=== PATIENT | male | born 1965 | race Caucasian/White ===

== ENCOUNTER → 2018-10-20 | Outpatient (CLI) | payer BC ==
[~2018-10-20] MED LIST: BIAXIN FILMTAB250 MG PO; CHOLESTEROL MED; CRESTOR5 MG PO; ENALAPRIL MALEAT5 MG PO; FENOFIBRATE40 MG PO; GLIPIZIDE ER2.5 MG PO; GLUCOPHAGE1000 MG PO; IBU800 M1 PO; LIPITOR10 MG PO; LISINOPRIL2.5 MG PO; METFORMIN500 MG PO; ULTRAM50 MG PO
[2018-10-20 09:00] LABS: HEMATOCRIT 44.5 % (42.0-52.0); HEMOGLOBIN 14.5 g/dl (14.0-18.0); MEAN CELL VOLUME 87.1 fl (80.0-94.0); MEAN CORPUSCULAR HGB 28.4 pg (27.0-31.0); MEAN CORPUSCULAR HGB CONC 32.6 g/dl (33.0-37.0); MEAN PLATELET VOLUME 10.5 fl (9.6-12.3); RED BLOOD COUNT 5.11 10*6/uL (4.50-5.90); RED CELL DISTRI WIDTH 14.1 % (0-14.5); WHITE BLOOD COUNT 9.6 10*3/uL (4.8-10.8)
[2018-10-20 09:32] LABS: CHLORIDE 107 mmol/L (98-107); POTASSIUM 4.2 mmol/L (3.5-5.1); SODIUM 139 mmol/L (136-145)
[2018-10-20 09:41] LABS: ALBUMIN 3.7 gm/dl (3.1-4.5); ALKALINE PHOSPHATASE 42 U/L (45-117); BUN 11 mg/dl (7-24); CHOLESTEROL 121 mg/dL (<200); CREATININE 1.14 mg/dL (0.70-1.30); HDL CHOLESTEROL 16 mg/dl (40-60); LDL CHOLESTEROL 42 mg/dL (9-159); SGOT/AST 18 IU/L (3-35); SGPT/ALT 33 U/L (12-78); TOTAL PROTEIN 6.7 gm/dL (6.4-8.2); TRIGLYCERIDES 317 mg/dl (<150); VLDL CHOLESTEROL 63 mg/dL (6-40)
[2018-10-20 10:17] LABS: VITAMIN D, 25-HYDROXY 38.8 ng/mL (30-100)
[2018-10-20 10:18] LABS: PTH INTACT 28.7 pg/mL (18.5-88.0)
[2018-10-23 17:03] LABS: RENIN ACTIVITY (PLASMA) 0.837 ng/mL/hr (0.167-5.380)
[2018-10-25 05:03] LABS: ALDOSTERONE/RENIN RATIO 3.7 (0.0-30.0)
[2018-10-26 08:05] LABS: METANEPHRINE, PLASMA 15 pg/mL (0-62); NORMETANEPHRINE, PLASMA 71 pg/mL (0-145)
== END | disposition home or self-care (01) ==
LOC: LAB 08:28
PROVIDERS: Internal Medicine; Registered Nurse Flight
DX: N20.0 Calculus of kidney (principal); E27.8 Other specified disorders of adrenal gland; E55.9 Vitamin D deficiency, unspecified; E11.65 Type 2 diabetes mellitus with hyperglycemia; E78.2 Mixed hyperlipidemia

== ENCOUNTER → 2019-09-07 | Outpatient (CLI) | payer OTHER ==
[2019-09-07 10:14] LABS: BILIRUBIN NEGATIVE (NEGATIVE); BLOOD NEGATIVE (NEGATIVE); CLARITY CLEAR (CLEAR); COLOR YELLOW (YELLOW); GLUCOSE 3+ (NEGATIVE); KETONE NEGATIVE (NEGATIVE); LEUKO ESTERASE NEGATIVE (NEGATIVE); NITRITE NEGATIVE (NEGATIVE); UROBILINOGEN 0.2 E.U./dl (0.2-1.0)
[2019-09-07 10:34] LABS: ALBUMIN 3.7 gm/dl (3.1-4.5); BILIRUBIN, DIRECT 0.2 mg/dL (0.0-0.2); BUN 17 mg/dl (7-24); CHLORIDE 108 mmol/L (98-107); CHOLESTEROL 90 mg/dL (<200); CREATININE 1.14 mg/dL (0.70-1.30); HDL CHOLESTEROL 14 mg/dl (40-60); LDL CHOLESTEROL 14 mg/dL (9-159); POTASSIUM 4.2 mmol/L (3.5-5.1); SGOT/AST 27 IU/L (3-35); SGPT/ALT 36 U/L (12-78); SODIUM 137 mmol/L (136-145); TOTAL PROTEIN 6.8 gm/dL (6.4-8.2); TRIGLYCERIDES 309 mg/dl (<150); URIC ACID 4.6 mg/dL (3.5-7.2); VLDL CHOLESTEROL 62 mg/dL (6-40)
[2019-09-07 10:36] LABS: ALKALINE PHOSPHATASE 42 U/L (45-117)
== END | disposition home or self-care (01) ==
LOC: LAB 09:40
PROVIDERS: Internal Medicine
DX: E11.65 Type 2 diabetes mellitus with hyperglycemia (principal); E78.5 Hyperlipidemia, unspecified; E55.9 Vitamin D deficiency, unspecified; N20.0 Calculus of kidney

== ENCOUNTER → 2020-01-10 | Outpatient (CLI) | payer OTHER ==
[2020-01-10 09:58] LABS: BILIRUBIN Negative (Negative); BLOOD Negative (Negative); CLARITY Clear (Clear); COLOR Yellow (Yellow); GLUCOSE 3+ (Negative); KETONE Negative (Negative); LEUKO ESTERASE Negative (Negative); NITRITE Negative (Negative); SPECIFIC GRAVITY 1.025 (1.001-1.030)
[2020-01-10 10:10] LABS: CALCIUM OXALATE CRYSTALS Trace; RBC 0-2 rbc/hpf (0-2)
[2020-01-10 10:13] LABS: ALBUMIN 3.8 gm/dl (3.1-4.5); ALKALINE PHOSPHATASE 48 U/L (45-117); BILIRUBIN, DIRECT 0.2 mg/dL (0.0-0.2); BUN 18 mg/dl (7-24); CHLORIDE 109 mmol/L (98-107); CHOLESTEROL 92 mg/dL (<200); CREATININE 1.06 mg/dL (0.70-1.30); HDL CHOLESTEROL 21 mg/dl (40-60); LDL CHOLESTEROL 7 mg/dL (9-159); POTASSIUM 4.4 mmol/L (3.5-5.1); SGOT/AST 32 IU/L (3-35); SGPT/ALT 39 U/L (12-78); SODIUM 139 mmol/L (136-145); TOTAL PROTEIN 6.9 gm/dL (6.4-8.2); TRIGLYCERIDES 320 mg/dl (<150); VLDL CHOLESTEROL 64 mg/dL (6-40)
== END | disposition home or self-care (01) ==
LOC: LAB 08:53
PROVIDERS: ATTEND Internal Medicine
DX: E11.65 Type 2 diabetes mellitus with hyperglycemia (principal); E78.5 Hyperlipidemia, unspecified; E55.9 Vitamin D deficiency, unspecified

== ENCOUNTER → 2020-02-10 | Outpatient (CLI) | payer OTHER | END | disposition home or self-care (01) | LOC: COVID19 12:42 | PROVIDERS: ATTEND Internal Medicine | DX: U07.1 COVID-19 (principal) ==

== ENCOUNTER → 2020-07-25 | Outpatient (CLI) | payer OTHER ==
[2020-07-25 10:10] LABS: ALBUMIN 3.7 gm/dl (3.1-4.5); ALKALINE PHOSPHATASE 39 U/L (45-117); BILIRUBIN, DIRECT 0.2 mg/dL (0.0-0.2); BUN 16 mg/dl (7-24); CHLORIDE 108 mmol/L (98-107); CHOLESTEROL 87 mg/dL (<200); CREATININE 1.07 mg/dL (0.70-1.30); LDL CHOLESTEROL 21 mg/dL (9-159); POTASSIUM 4.2 mmol/L (3.5-5.1); SGOT/AST 25 IU/L (3-35); SGPT/ALT 32 U/L (12-78); SODIUM 140 mmol/L (136-145); TOTAL PROTEIN 6.8 gm/dL (6.4-8.2); TRIGLYCERIDES 246 mg/dl (<150)
[2020-07-25 10:15] LABS: BILIRUBIN Negative (Negative); BLOOD Negative (Negative); CLARITY Clear (Clear); COLOR Yellow (Yellow); GLUCOSE 3+ (Negative); KETONE Negative (Negative); LEUKO ESTERASE Negative (Negative); NITRITE Negative (Negative); PH 5.5 (4.5-8.0)
[2020-07-25 10:21] LABS: WBC 0-2 wbc/hpf (0-5)
== END | disposition home or self-care (01) ==
LOC: LAB 09:18
PROVIDERS: ATTEND Internal Medicine
DX: E11.65 Type 2 diabetes mellitus with hyperglycemia (principal); E78.5 Hyperlipidemia, unspecified; E55.9 Vitamin D deficiency, unspecified

== ENCOUNTER → 2020-11-23 | Outpatient (CLI) | payer OTHER ==
[2020-11-23 10:29] LABS: BILIRUBIN Negative (Negative); BLOOD Negative (Negative); CLARITY Cloudy (Clear); COLOR Yellow (Yellow); GLUCOSE 3+ (Negative); KETONE Negative (Negative); LEUKO ESTERASE Negative (Negative); NITRITE Negative (Negative); PH 5.5 (4.5-8.0)
[2020-11-23 10:39] LABS: BACTERIA TRACE; CALCIUM OXALATE CRYSTALS 1+; RBC 0-2 rbc/hpf (0-2)
[2020-11-23 11:11] LABS: ALBUMIN 3.6 gm/dl (3.1-4.5); ALKALINE PHOSPHATASE 36 U/L (45-117); BUN 17 mg/dl (7-24); CHLORIDE 108 mmol/L (98-107); CHOLESTEROL 160 mg/dL (<200); CREATININE 1.03 mg/dL (0.70-1.30); LDL CHOLESTEROL 87 mg/dL (9-159); POTASSIUM 4.7 mmol/L (3.5-5.1); SGOT/AST 31 IU/L (3-35); SGPT/ALT 30 U/L (12-78); SODIUM 139 mmol/L (136-145); TOTAL PROTEIN 6.6 gm/dL (6.4-8.2); TRIGLYCERIDES 271 mg/dl (<150)
== END | disposition home or self-care (01) ==
LOC: LAB 09:38
PROVIDERS: ATTEND Internal Medicine
DX: E11.9 Type 2 diabetes mellitus without complications (principal); E78.5 Hyperlipidemia, unspecified; E27.8 Other specified disorders of adrenal gland; E55.9 Vitamin D deficiency, unspecified

== ENCOUNTER → 2021-05-17 | Outpatient (CLI) | payer BC ==
[2021-05-17 09:48] LABS: BILIRUBIN Negative (Negative); BLOOD Negative (Negative); CLARITY Clear (Clear); COLOR Yellow (Yellow); GLUCOSE 3+ (Negative); KETONE Negative (Negative); LEUKO ESTERASE Negative (Negative); NITRITE Negative (Negative); SPECIFIC GRAVITY 1.025 (1.001-1.030)
[2021-05-17 09:58] LABS: EPITHELIAL CELLS 0-2
[2021-05-17 09:59] LABS: BACTERIA TRACE; CALCIUM OXALATE CRYSTALS 1+; MUCOUS 1+
[2021-05-17 10:04] LABS: ALKALINE PHOSPHATASE 39 U/L (45-117); BUN 13 mg/dl (7-24); CHLORIDE 110 mmol/L (98-107); CHOLESTEROL 64 mg/dL (<200); CREATININE 0.89 mg/dL (0.70-1.30); LDL CHOLESTEROL 2 mg/dL (9-159); POTASSIUM 4.3 mmol/L (3.5-5.1); SGOT/AST 35 IU/L (3-35); SGPT/ALT 49 U/L (12-78); SODIUM 141 mmol/L (136-145); TOTAL PROTEIN 6.5 gm/dL (6.4-8.2); TRIGLYCERIDES 191 mg/dl (<150)
== END | disposition home or self-care (01) ==
LOC: LAB 09:04
PROVIDERS: ATTEND Internal Medicine
DX: E11.9 Type 2 diabetes mellitus without complications (principal); E55.9 Vitamin D deficiency, unspecified; E78.5 Hyperlipidemia, unspecified

== ENCOUNTER → 2021-10-18 | Outpatient (CLI) | payer BC ==
[2021-10-18 10:10] LABS: BILIRUBIN Negative (Negative); BLOOD Negative (Negative); CLARITY Clear (Clear); COLOR Yellow (Yellow); GLUCOSE 3+ (Negative); KETONE Negative (Negative); LEUKO ESTERASE Negative (Negative); NITRITE Negative (Negative); SPECIFIC GRAVITY 1.015 (1.001-1.030)
[2021-10-18 10:26] LABS: ALKALINE PHOSPHATASE 37 U/L (45-117); BUN 18 mg/dl (7-24); CHLORIDE 108 mmol/L (98-107); CHOLESTEROL 85 mg/dL (<200); CREATININE 1.17 mg/dL (0.70-1.30); LDL CHOLESTEROL 15 mg/dL (9-159); POTASSIUM 4.8 mmol/L (3.5-5.1); SGOT/AST 33 IU/L (3-35); SGPT/ALT 36 U/L (12-78); SODIUM 139 mmol/L (136-145); TRIGLYCERIDES 253 mg/dl (<150)
[2021-10-18 11:16] LABS: BACTERIA TRACE; RBC 0-2 rbc/hpf (0-2)
== END ==
LOC: LAB 09:47
PROVIDERS: ATTEND Internal Medicine
DX: E11.9 Type 2 diabetes mellitus without complications (principal); E78.5 Hyperlipidemia, unspecified; E55.9 Vitamin D deficiency, unspecified

== ENCOUNTER → 2021-12-20 | Outpatient (CLI) | payer BC | LOC: LAB 10:19 | PROVIDERS: ATTEND Urology | DX: Z12.5 Encounter for screening for malignant neoplasm of prostate (principal) ==

== ENCOUNTER → 2022-04-11 | Outpatient (CLI) | payer BC ==
[2022-04-11 11:11] LABS: BILIRUBIN Negative (Negative); BLOOD Negative (Negative); CLARITY Clear (Clear); COLOR Yellow (Yellow); GLUCOSE 3+ (Negative); KETONE Negative (Negative); LEUKO ESTERASE Negative (Negative); NITRITE Negative (Negative)
[2022-04-11 11:22] LABS: CALCIUM OXALATE CRYSTALS Trace; RBC 0-2 rbc/hpf (0-2)
[2022-04-11 11:23] LABS: BACTERIA 1+
[2022-04-11 11:26] LABS: ALKALINE PHOSPHATASE 35 U/L (46-116); BUN 12 mg/dl (9-23); CHLORIDE 105 mmol/L (98-107); CHOLESTEROL 75 mg/dL (<200); LDL CHOLESTEROL 25 mg/dL (9-159); POTASSIUM 4.4 mmol/L (3.4-5.1); SGPT/ALT 31 U/L (10-49); TOTAL PROTEIN 6.6 gm/dL (6.0-8.0); TRIGLYCERIDES 151 mg/dl (<150)
== END | disposition home or self-care (01) ==
LOC: LAB 10:37
PROVIDERS: ATTEND Internal Medicine
DX: E11.9 Type 2 diabetes mellitus without complications (principal); E78.5 Hyperlipidemia, unspecified; E55.9 Vitamin D deficiency, unspecified

== ENCOUNTER 2022-05-30 22:46 | Inpatient (IN) | payer BC ==
[~2022-05-30] VITALS: Ht 172.7 cm; Wt 87.3 kg
[2022-05-30 23:09] VITALS: BP 122/66
[2022-05-30 23:53] LABS: BASO # 0.1 10*3/uL (0.0-0.1); BASO % 0.5 % (0.0-1.0); EOS # 0.3 10*3/uL (0.0-0.4); EOS % 2.3 % (1.0-4.0); HEMATOCRIT 44.2 % (42.0-52.0); LYMPH # 2.6 10*3/uL (1.3-4.4); LYMPH % 20.6 % (27.0-41.0); MEAN CELL VOLUME 87.4 fl (80.0-94.0); MEAN CORPUSCULAR HGB 29.1 pg (27.0-31.0); MEAN CORPUSCULAR HGB CONC 33.3 g/dl (33.0-37.0); MEAN PLATELET VOLUME 9.9 fl (9.6-12.3); MONO # 1.1 10*3/uL (0.1-1.0); MONO % 8.7 % (3.0-9.0); NEUT # 8.4 10*3/uL (2.3-7.9); NEUT % 67.7 % (47.0-73.0); PLATELET COUNT AUTOMATED 249 10*3/uL (130-400); RED BLOOD COUNT 5.06 10*6/uL (4.50-5.90); RED CELL DISTRI WIDTH 14.3 % (0-14.5); WHITE BLOOD COUNT 12.4 10*3/uL (4.8-10.8)
[2022-05-31] VITALS (13 sets, daily range): BP systolic 120–147; BP diastolic 52–82
[2022-05-31 00:09] LABS: ALKALINE PHOSPHATASE 27 U/L (46-116); BUN 14 mg/dl (9-23); CHLORIDE 111 mmol/L (98-107); LIPASE 70 U/L (12-53); POTASSIUM 4.1 mmol/L (3.4-5.1); SGPT/ALT 22 U/L (10-49); TOTAL PROTEIN 5.4 gm/dL (6.0-8.0)
[2022-05-31 00:42] LABS: BILIRUBIN 1+ (Negative); BLOOD 2+ (Negative); CLARITY Turbid (Clear); COLOR Orange (Yellow); GLUCOSE 3+ (Negative); KETONE Negative (Negative); LEUKO ESTERASE 2+ (Negative); NITRITE Positive (Negative); SPECIFIC GRAVITY >= 1.030 (1.001-1.030)
[2022-05-31 01:05] LABS: CALCIUM OXALATE CRYSTALS Trace; RBC TNTC rbc/hpf (0-2)
[2022-05-31 01:06] LABS: BACTERIA TRACE; WBC 16-20 wbc/hpf (0-5)
[2022-05-31] MEDS ORDERED: ZETIA10 MG PO (03:37)
[2022-05-31] MEDS ORDERED: VASCEPA1 G1 PO (03:37)
[2022-05-31] MEDS ORDERED: JARDIANCE25 MG PO (03:37)
[2022-05-31] MEDS ORDERED: IMDUR SA30 MG PO (03:38)
[2022-05-31] MEDS ORDERED: Clopidogrel75 MG PO (03:38)
[2022-05-31] MEDS ORDERED: ENALAPRIL5 MG PO (03:39)
[2022-05-31] MEDS ORDERED: GLIPIZIDE5 MG PO (03:39)
[2022-05-31] MEDS ORDERED: METFORMIN HYDR500 MG PO (03:39)
[2022-05-31] MEDS ORDERED: ROSUVASTATIN CA40 MG PO (03:42)
[2022-05-31] MEDS ORDERED: COREG12.5 M1 PO (03:43)
[2022-05-31] MEDS ORDERED: RANOLAZINE ER500 MG PO (03:44)
[2022-05-31] MEDS ORDERED: MONTELUKAST SOD10 MG PO (03:44)
[2022-05-31] MEDS ORDERED: FLONASE ALLERG9.9 ML NAS (03:45)
[2022-05-31] MEDS ORDERED: TRULICITY4.5 MG/0.5 SQ (03:46)
[2022-06-01] VITALS: BP 130/61
[2022-06-01 04:00] VITALS: BP 155/79
[2022-06-01 05:26] LABS: ALKALINE PHOSPHATASE 32 U/L (46-116); BUN 15 mg/dl (9-23); CHLORIDE 104 mmol/L (98-107); FREE T4 1.01 ng/dl (0.89-1.76); POTASSIUM 3.9 mmol/L (3.4-5.1); SGPT/ALT 19 U/L (10-49); THYROID STIM HORMONE (HS) 0.807 uIU/ml (0.550-4.780); TOTAL PROTEIN 6.1 gm/dL (6.0-8.0)
[2022-06-01 06:05] LABS: BASO % 0.2 % (0.0-1.0); HEMATOCRIT 46.1 % (42.0-52.0); LYMPH % 15.3 % (27.0-41.0); MEAN CELL VOLUME 88.7 fl (80.0-94.0); MEAN CORPUSCULAR HGB 28.5 pg (27.0-31.0); MEAN CORPUSCULAR HGB CONC 32.1 g/dl (33.0-37.0); MEAN PLATELET VOLUME 10.6 fl (9.6-12.3); MONO # 1.3 10*3/uL (0.1-1.0); MONO % 10.3 % (3.0-9.0); NEUT # 9.6 10*3/uL (2.3-7.9); NEUT % 73.7 % (47.0-73.0); PLATELET COUNT AUTOMATED 262 10*3/uL (130-400); RED CELL DISTRI WIDTH 14.6 % (0-14.5)
[2022-06-01 08:00] VITALS: BP 135/64
[2022-06-01 12:00] VITALS: BP 136/60
[2022-06-01] MEDS ORDERED: LEVOFLOXACIN500 MG PO (14:13)
== END 2022-06-01 15:14 | disposition home or self-care (01) | DRG 916 ==
LOC: ED 22:46 → EDHOLD 05-31 06:26 → ICCU 05-31 06:26
PROVIDERS: Internal Medicine; ADMIT Internal Medicine; ATTEND Internal Medicine
PROC: 30233K1 Transfusion of Nonautologous Frozen Plasma into Peripheral Vein, Percutaneous Approach (ICD-10-PCS; principal; 2022-05-31)
DX: T78.3XXA Angioneurotic edema, initial encounter (principal); N12 Tubulo-interstitial nephritis, not specified as acute or chronic; I25.10 Atherosclerotic heart disease of native coronary artery without angina pectoris; N20.0 Calculus of kidney; E78.5 Hyperlipidemia, unspecified; I10 Essential (primary) hypertension; R00.1 Bradycardia, unspecified; E11.65 Type 2 diabetes mellitus with hyperglycemia; Z88.8 Allergy status to other drugs, medicaments and biological substances; Z87.891 Personal history of nicotine dependence; Z82.49 Family history of ischemic heart disease and other diseases of the circulatory system; Z83.3 Family history of diabetes mellitus; Z80.0 Family history of malignant neoplasm of digestive organs; I25.2 Old myocardial infarction; Z95.5 Presence of coronary angioplasty implant and graft; Z79.84 Long term (current) use of oral hypoglycemic drugs; Z79.899 Other long term (current) drug therapy; Y93.89 Activity, other specified; Y92.89 Other specified places as the place of occurrence of the external cause; Y99.8 Other external cause status

== ENCOUNTER → 2022-06-04 | Outpatient (CLI) | payer BC ==
[~2022-06-04] MED LIST changes: +COREG12.5 M1 PO; +Clopidogrel75 MG PO; +ENALAPRIL5 MG PO; +FLONASE ALLERG9.9 ML NAS; +GLIPIZIDE5 MG PO; +IMDUR SA30 MG PO; +JARDIANCE25 MG PO; +LEVOFLOXACIN500 MG PO; +METFORMIN HYDR500 MG PO; +MONTELUKAST SOD10 MG PO; +RANOLAZINE ER500 MG PO; +ROSUVASTATIN CA40 MG PO; +TRULICITY4.5 MG/0.5 SQ; +VASCEPA1 G1 PO; +ZETIA10 MG PO
[2022-06-04 16:24] LABS: BASO # 0.1 10*3/uL (0.0-0.1); BASO % 0.7 % (0.0-1.0); EOS # 0.4 10*3/uL (0.0-0.4); HEMATOCRIT 50.6 % (42.0-52.0); LYMPH # 4.6 10*3/uL (1.3-4.4); LYMPH % 36.5 % (27.0-41.0); MEAN CELL VOLUME 87.5 fl (80.0-94.0); MEAN CORPUSCULAR HGB 28.9 pg (27.0-31.0); MEAN PLATELET VOLUME 10.2 fl (9.6-12.3); MONO # 1.4 10*3/uL (0.1-1.0); MONO % 11.1 % (3.0-9.0); NEUT % 48.2 % (47.0-73.0); PLATELET COUNT AUTOMATED 309 10*3/uL (130-400); RED BLOOD COUNT 5.78 10*6/uL (4.50-5.90); RED CELL DISTRI WIDTH 13.8 % (0-14.5); WHITE BLOOD COUNT 12.5 10*3/uL (4.8-10.8)
[2022-06-04 17:06] LABS: ALKALINE PHOSPHATASE 40 U/L (46-116); BUN 18 mg/dl (9-23); CHLORIDE 104 mmol/L (98-107); POTASSIUM 4.1 mmol/L (3.4-5.1); SGPT/ALT 37 U/L (10-49); TOTAL PROTEIN 6.2 gm/dL (6.0-8.0)
== END | disposition home or self-care (01) ==
LOC: LAB 16:00
PROVIDERS: ATTEND Internal Medicine
DX: T78.3XXA Angioneurotic edema, initial encounter (principal); N20.0 Calculus of kidney; R73.9 Hyperglycemia, unspecified; X58.XXXA Exposure to other specified factors, initial encounter

== ENCOUNTER → 2022-06-20 | Outpatient (CLI) | payer BC ==
[2022-06-20 10:15] LABS: BILIRUBIN Negative (Negative); BLOOD Negative (Negative); CLARITY Clear (Clear); COLOR Yellow (Yellow); GLUCOSE 3+ (Negative); KETONE Negative (Negative); LEUKO ESTERASE Negative (Negative); NITRITE Negative (Negative); SPECIFIC GRAVITY 1.015 (1.001-1.030)
[2022-06-20 10:30] LABS: BACTERIA TRACE; EPITHELIAL CELLS 0-2; RBC 0-2 rbc/hpf (0-2); WBC 0-2 wbc/hpf (0-5)
[2022-06-20 11:00] LABS: ALKALINE PHOSPHATASE 31 U/L (46-116); BUN 13 mg/dl (9-23); CHLORIDE 108 mmol/L (98-107); CHOLESTEROL 77 mg/dL (<200); POTASSIUM 4.1 mmol/L (3.4-5.1); SGPT/ALT 22 U/L (10-49); TOTAL PROTEIN 6.1 gm/dL (6.0-8.0); TRIGLYCERIDES 149 mg/dl (<150)
[2022-06-20 11:12] LABS: LDL CHOLESTEROL 28 mg/dL (9-159)
== END | disposition home or self-care (01) ==
LOC: LAB 09:51
PROVIDERS: ATTEND Internal Medicine
DX: E11.9 Type 2 diabetes mellitus without complications (principal); E78.5 Hyperlipidemia, unspecified; E55.9 Vitamin D deficiency, unspecified

== ENCOUNTER → 2022-11-14 | Outpatient (CLI) | payer BC ==
[2022-11-14 10:32] LABS: BILIRUBIN Negative (Negative); BLOOD Negative (Negative); CLARITY Clear (Clear); COLOR Yellow (Yellow); GLUCOSE 3+ (Negative); KETONE Negative (Negative); LEUKO ESTERASE Negative (Negative); NITRITE Negative (Negative)
[2022-11-14 11:14] LABS: BACTERIA TRACE; WBC 0-2 wbc/hpf (0-5)
[2022-11-14 11:25] LABS: ALKALINE PHOSPHATASE 31 U/L (46-116); BUN 12 mg/dl (9-23); CHLORIDE 107 mmol/L (98-107); CHOLESTEROL 89 mg/dL (<200); POTASSIUM 4.5 mmol/L (3.4-5.1); SGPT/ALT 24 U/L (10-49); TOTAL PROTEIN 6.4 gm/dL (6.0-8.0); TRIGLYCERIDES 186 mg/dl (<150)
[2022-11-14 11:30] LABS: LDL CHOLESTEROL 33 mg/dL (9-159)
== END | disposition home or self-care (01) ==
LOC: LAB 09:50
PROVIDERS: ATTEND Internal Medicine
DX: E55.9 Vitamin D deficiency, unspecified (principal); E78.5 Hyperlipidemia, unspecified; E11.9 Type 2 diabetes mellitus without complications

== ENCOUNTER 2022-12-07 20:53 | Emergency (ER) | payer BC ==
[~2022-12-07] VITALS: Ht 172.7 cm; Wt 88.5 kg
[2022-12-07 21:22] LABS: BASO # 0.1 10*3/uL (0.0-0.1); BASO % 0.8 % (0.0-1.0); EOS # 0.5 10*3/uL (0.0-0.4); EOS % 5.1 % (1.0-4.0); HEMATOCRIT 50.1 % (42.0-52.0); LYMPH % 38.6 % (27.0-41.0); MEAN CELL VOLUME 87.7 fl (80.0-94.0); MEAN CORPUSCULAR HGB 29.2 pg (27.0-31.0); MEAN CORPUSCULAR HGB CONC 33.3 g/dl (33.0-37.0); MEAN PLATELET VOLUME 9.9 fl (9.6-12.3); MONO # 0.8 10*3/uL (0.1-1.0); MONO % 7.6 % (3.0-9.0); NEUT # 4.9 10*3/uL (2.3-7.9); NEUT % 47.4 % (47.0-73.0); PLATELET COUNT AUTOMATED 258 10*3/uL (130-400); RED BLOOD COUNT 5.71 10*6/uL (4.50-5.90); RED CELL DISTRI WIDTH 15.2 % (0-14.5); WHITE BLOOD COUNT 10.4 10*3/uL (4.8-10.8)
[2022-12-07 21:37] VITALS: BP 118/65
[2022-12-07 21:37] LABS: ACT PARTIAL THROMBO TIME 22.6 SECONDS (20.0-32.1)
[2022-12-07 21:41] LABS: ALKALINE PHOSPHATASE 35 U/L (46-116); BUN 13 mg/dl (9-23); CHLORIDE 107 mmol/L (98-107); LIPASE 103 U/L (12-53); POTASSIUM 3.9 mmol/L (3.4-5.1); SGPT/ALT 27 U/L (5-49); TOTAL PROTEIN 6.3 gm/dL (6.0-8.0)
[2022-12-07 22:34] LABS: BILIRUBIN Negative (Negative); BLOOD Negative (Negative); CLARITY Clear (Clear); COLOR Yellow (Yellow); GLUCOSE 3+ (Negative); KETONE Negative (Negative); LEUKO ESTERASE Negative (Negative); NITRITE Negative (Negative); PH 6.5 (4.5-8.0); SPECIFIC GRAVITY >= 1.030 (1.001-1.030)
[2022-12-07 22:46] LABS: RBC 0-2 rbc/hpf (0-2); WBC 0-2 wbc/hpf (0-5)
[2022-12-07] MEDS ORDERED: VITAMIN D250 MCG PO (23:03)
[2022-12-07] MEDS ORDERED: CETIRIZINE10 MG PO (23:05)
[2022-12-07] MEDS ORDERED: VASCEPA1 G1 PO (23:05)
[2022-12-07] MEDS ORDERED: FENOFIBRATE MI200 MG PO (23:06)
== END 2022-12-08 01:09 | disposition home or self-care (01) ==
LOC: ED 20:53
PROVIDERS: Internal Medicine
DX: K59.00 Constipation, unspecified (principal); E86.0 Dehydration; N20.0 Calculus of kidney; R07.89 Other chest pain; R74.8 Abnormal levels of other serum enzymes; E11.9 Type 2 diabetes mellitus without complications; I10 Essential (primary) hypertension; E78.00 Pure hypercholesterolemia, unspecified; Z88.8 Allergy status to other drugs, medicaments and biological substances; Z95.5 Presence of coronary angioplasty implant and graft; Z98.890 Other specified postprocedural states; Z87.891 Personal history of nicotine dependence

== ENCOUNTER → 2023-04-24 | Outpatient (CLI) | payer BC ==
[~2023-04-24] MED LIST changes: +CETIRIZINE10 MG PO; +FENOFIBRATE MI200 MG PO; +VITAMIN D250 MCG PO
[2023-04-24 10:36] LABS: BILIRUBIN Negative (Negative); BLOOD Negative (Negative); CLARITY Clear (Clear); COLOR Yellow (Yellow); GLUCOSE 3+ (Negative); KETONE Negative (Negative); LEUKO ESTERASE Negative (Negative); NITRITE Negative (Negative); SPECIFIC GRAVITY 1.025 (1.001-1.030)
[2023-04-24 10:46] LABS: ALKALINE PHOSPHATASE 35 U/L (46-116); BUN 10 mg/dl (9-23); CHLORIDE 108 mmol/L (98-107); CHOLESTEROL 81 mg/dL (<200); LDL CHOLESTEROL 13 mg/dL (9-159); POTASSIUM 4.8 mmol/L (3.4-5.1); SGPT/ALT 24 U/L (5-49); TOTAL PROTEIN 6.4 gm/dL (6.0-8.0); TRIGLYCERIDES 238 mg/dl (<150); URIC ACID 4.5 mg/dL (3.7-9.2)
[2023-04-24 10:54] LABS: EPITHELIAL CELLS 0-2; RBC 0-2 rbc/hpf (0-2); WBC 0-2 wbc/hpf (0-5)
[2023-04-24 10:55] LABS: BACTERIA 2+
== END | disposition home or self-care (01) ==
LOC: LAB 09:37
PROVIDERS: ATTEND Internal Medicine
DX: N20.0 Calculus of kidney (principal); E11.9 Type 2 diabetes mellitus without complications; E55.9 Vitamin D deficiency, unspecified; E66.9 Obesity, unspecified; E78.5 Hyperlipidemia, unspecified

== ENCOUNTER → 2023-12-18 | Outpatient (CLI) | payer BC ==
[~2023-12-18] MED LIST changes: +GLIPIZIDE XL10 M1 PO; +TRAMADOL HCL50 MG PO; +VIBRAMYCIN100 MG PO
[2023-12-18 10:49] LABS: BILIRUBIN Negative (Negative); BLOOD Negative (Negative); CLARITY Clear (Clear); COLOR Yellow (Yellow); GLUCOSE 3+ (Negative); KETONE Negative (Negative); LEUKO ESTERASE Negative (Negative); NITRITE Negative (Negative); SPECIFIC GRAVITY 1.015 (1.001-1.030)
[2023-12-18 11:01] LABS: CALCIUM OXALATE CRYSTALS Trace; EPITHELIAL CELLS 0-2; RBC 0-2 rbc/hpf (0-2); WBC 0-2 wbc/hpf (0-5)
[2023-12-18 11:02] LABS: BACTERIA TRACE
[2023-12-18 11:18] LABS: ALKALINE PHOSPHATASE 37 U/L (46-116); BUN 11 mg/dl (9-23); CHLORIDE 107 mmol/L (98-107); CHOLESTEROL 82 mg/dL (<200); LDL CHOLESTEROL 17 mg/dL (9-159); SGPT/ALT 28 U/L (5-49); TOTAL PROTEIN 6.6 gm/dL (6.0-8.0); TRIGLYCERIDES 221 mg/dl (<150)
== END | disposition home or self-care (01) ==
LOC: LAB 09:52
PROVIDERS: ATTEND Internal Medicine
DX: Z12.5 Encounter for screening for malignant neoplasm of prostate (principal); E11.9 Type 2 diabetes mellitus without complications; E55.9 Vitamin D deficiency, unspecified; E78.5 Hyperlipidemia, unspecified; N20.0 Calculus of kidney

== ENCOUNTER 2024-02-06 14:09 | Emergency (ER) | payer BC ==
[~2024-02-06] VITALS: Ht 172.7 cm; Wt 92.1 kg
[2024-02-06 14:11] VITALS: BP 99/74
[2024-02-06] MEDS ORDERED: SODIUM CHLORIDE 0.9% 1,000 ML IV ONE (14:20)
[2024-02-06] MEDS ORDERED: Ondansetron Hydrochloride 4 MG/2 ML VIAL IV ONE (14:20)
[2024-02-06] MEDS ORDERED: fentaNYL CITRATE/PF 50 MCG/ML SYRINGE IV ONE (14:20)
[2024-02-06 14:33] LABS: BASO # 0.1 10*3/uL (0.0-0.1); BASO % 0.8 % (0.0-1.0); EOS # 0.4 10*3/uL (0.0-0.4); HEMATOCRIT 49.7 % (42.0-52.0); MEAN CELL VOLUME 88.4 fl (80.0-94.0); MEAN CORPUSCULAR HGB CONC 32.8 g/dl (33.0-37.0); MEAN PLATELET VOLUME 10.2 fl (9.6-12.3); MONO # 0.9 10*3/uL (0.1-1.0); MONO % 7.9 % (3.0-9.0); NEUT % 58.8 % (47.0-73.0); PLATELET COUNT AUTOMATED 250 10*3/uL (130-400); RED BLOOD COUNT 5.62 10*6/uL (4.50-5.90); RED CELL DISTRI WIDTH 13.8 % (0-14.5); WHITE BLOOD COUNT 11.9 10*3/uL (4.8-10.8)
[2024-02-06 14:53] LABS: BUN 16 mg/dl (9-23); CHLORIDE 108 mmol/L (98-107); POTASSIUM 4.1 mmol/L (3.4-5.1)
[2024-02-06] MEDS ORDERED: CYCLOBENZAPRINE10 MG PO (16:11)
[2024-02-06] MEDS ORDERED: MELOXICAM15 MG PO (16:11)
== END 2024-02-06 16:14 | disposition home or self-care (01) ==
LOC: ED 14:09
PROVIDERS: Emergency Medicine
DX: R10.9 Unspecified abdominal pain (principal); I10 Essential (primary) hypertension; E78.5 Hyperlipidemia, unspecified; E11.9 Type 2 diabetes mellitus without complications; E78.00 Pure hypercholesterolemia, unspecified; R07.81 Pleurodynia; Z87.442 Personal history of urinary calculi; Z88.8 Allergy status to other drugs, medicaments and biological substances; Z95.5 Presence of coronary angioplasty implant and graft; Z98.890 Other specified postprocedural states; Z87.891 Personal history of nicotine dependence; W01.0XXA Fall on same level from slipping, tripping and stumbling without subsequent striking against object, initial encounter